=== PATIENT | female | born 1990 | race Caucasian/White ===

== ENCOUNTER 2016-04-06 11:40 | Emergency (ER) | payer OTHER ==
[2016-04-06 11:51] VITALS: BP 133/83; PULSE 71; TEMP 98.7; BMI 24.1
--- NOTE | 2016-04-06 11:57 | PDOC ---
History of Present Illness - General History Source: Patient, Old Records Exam Limitations: No Limitations - History of Present Illness Initial Comments: 04/06/16 12:02 25 y/o female with h/o asthma who presents to the ED with c/o dizziness described as feeling off balance. The patient states that she recently went on a cruise and when they docked at home, her symptoms started. She has felt that when she moves her head quickly or if she looks at the light then she feels off- balance. The patient went to an urgent care center that diagnosed her with vertigo and prescribed meclizine which has been helpful but her symptoms have persisted. The patient followed up with an [facility] specialist this morning who found no ENT etiology at this time and referred her to the ED for further work- up--potentially viral meningitis. The patient denies photophobia, headache, neck stiffness, fevers, chills or URI Sx. She says that on Wednesday when she was havingthe Sx, she felt nauseated but did not vomit. All other ROS are negative. <Corrie Treviño - Last Filed: 04/06/16 14:20> <Al Cunningham - Last Filed: 04/06/16 14:44> - General Chief Complaint: Lightheaded Stated Complaint: DIZZINESS Time Seen by Provider: 04/06/16 11:56 Past History - Past Medical History Asthma: Yes - Psycho/Social/Smoking Cessation Hx Anxiety: No Suicidal Ideation: No Smoking History: Never smoked Hx Alcohol Use: No Drug/Substance Use Hx: No <Corrie Treviño - Last Filed: 04/06/16 14:20> <Al Cunningham - Last Filed: 04/06/16 14:44> - Past Medical History Allergies/Adverse Reactions: Allergies Allergy/AdvReac Type Severity Reaction Status Date / Time shellfish derived Allergy Verified 04/06/16 11:44 Home Medications: Ambulatory Orders Meclizine HCl 25 mg PO QID PRN 04/06/16 Meclizine HCl [Antivert -] 50 mg PO TID PRN #30 tablet 04/06/16 Review of Systems - Review of Systems Able to Perform ROS?: Yes Is the patient limited [place] Citizen proficient: No Constitutional: No: Symptoms Reported HEENTM: Yes: See HPI, Ear Pain Respiratory: No: Symptoms reported Cardiac (ROS): No: Symptoms Reported ABD/GI: No: Symptoms Reported : No: Symptoms Reported Musculoskeletal: No: Symptoms Reported Integumentary: No: Symptoms Reported Neurological: Yes: Unsteady Gait Endocrine: No: Symptoms Reported Hematologic/Lymphatic: No: Symptoms Reported <Corrie Treviño - Last Filed: 04/06/16 14:20> *Physical Exam - Vital Signs Last Vital Signs Temp Pulse Resp BP Pulse Ox 98.7 F 71 18 133/83 100 04/06/16 11:40 04/06/16 11:40 04/06/16 11:40 04/06/16 11:40 04/06/16 11:40 - Physical Exam Comments: 04/06/16 11:58 GENERAL: Well developed, well nourished. Awake and alert. No acute distress. HEENT: Normocephalic, atraumatic. PERRLA, EOMI. TM's are intact bilaterally with positive light reflexes. No conjunctival pallor. Sclera are non-icteric. Moist mucous membranes. Oropharynx is clear. NECK: Supple. Full ROM. No JVD. No lymphadenopathy. CARDIOVASCULAR: Regular rate and rhythm. No murmurs, rubs, or gallops. Distal pulses are 2+ and symmetric. PULMONARY: No evidence of respiratory distress. Lungs clear to auscultation bilaterally. No wheezing, rales or rhonchi. ABDOMINAL: Soft. Non-tender. Non-distended. No rebound or guarding. No organomegaly. Normoactive bowel sounds. MUSCULOSKELETAL Normal range of motion at all joints. No bony deformities or tenderness. No CVA tenderness. EXTREMITIES: No cyanosis. No clubbing. No edema. No calf tenderness. SKIN: Warm and dry. Normal capillary refill. No rashes. No jaundice. NEUROLOGICAL: Alert, awake, appropriate. Cranial nerves 2-12 intact. Grossly non-focal exam. There are no cerebellar deficits. There is slight fatiguable horizontal nystagmus elicited on right lateral gaze. PSYCHIATRIC: Cooperative. Good eye contact. Appropriate mood and affect. <Corrie Treviño - Last Filed: 04/06/16 14:20> - Vital Signs Last Vital Signs Temp Pulse Resp BP Pulse Ox 98.7 F 71 18 133/83 100 04/06/16 11:40 04/06/16 11:40 04/06/16 11:40 04/06/16 11:40 04/06/16 11:40 <Al Cunningham - Last Filed: 04/06/16 14:44> ED Treatment Course - LABORATORY CBC & Chemistry Diagram: 04/06/16 12:10 04/06/16 12:10 <Corrie Treviño - Last Filed: 04/06/16 14:20> - LABORATORY CBC & Chemistry Diagram: 04/06/16 12:10 04/06/16 12:10 - ADDITIONAL ORDERS Additional order review: Laboratory Results 04/06/16 04/06/16 12:10 12:00 Sodium 132 L Potassium 3.9 Chloride 101 Carbon Dioxide 25 Anion Gap 6 L BUN 10 Creatinine 0.7 Random Glucose 91 Calcium 8.8 Phosphorus 3.5 Magnesium 2.0 Urine Color Yellow Urine Appearance Clear Urine pH 5.5 Ur Specific [place] 1.010 Urine Protein Negative Urine Glucose (UA) Negative Urine Ketones Negative Urine Blood Trace-lysed Urine Nitrite Negative Urine Bilirubin Negative Urine Urobilinogen 0.2 e.u/dl Ur Leukocyte Esterase Negative Urine HCG, Qual Negative 04/06/16 12:10 RBC 4.45 MCV 92.7 MCHC 32.6 RDW 11.9 MPV 8.6 Neutrophils % 54.0 Lymphocytes % 33.3 Monocytes % 7.7 Eosinophils % 4.6 H Basophils % 0.4 - RADIOLOGY Radiograph Interpretation: 04/06/16 14:25 EXAM: Head CT INTERPRETED BY: Dr. Farah REVIEWED BY: Dr. Treviño IMPRESSION: No evidence of acute intracranial hemorrhage, edema, midline shift, mass effect, or skull fracture. There is no CT evidence of acute territorial infarction. <Al Cunningham - Last Filed: 04/06/16 14:44> Medical Decision Making - Medical Decision Making 04/06/16 11:59 25 y/o female with h/o asthma who presents to the ED with c/o one week h/o dizziness which she describes as feeling off balance. DDx includes but is not limited to: peripheral vertigo, electrolyte abnormality, mass lesion, dehydration, UTI, . Plan: 1. Labs 2. CT head 3. Urine 4. Symptomatic treatment 5. Observe and re-evaluate 04/06/16 14:21 Addendum: Labs were reviewed and are noted in the EMR. CT scan was negative for acute intracranial pathology. I will discuss the results of the lab studies as well as the CT head with the patient. The plan is to increase meclizine to 50 mg 3 times a day when necessary as needed for vertigo. I have also informed the patient that she should follow-up with her primary care physician for outpatient MRI of the brain as well as neurology consultation. I have also advised that the patient return to the emergency department if her symptoms persist, worsen, or new symptoms arise. <Corrie Treviño - Last Filed: 04/06/16 14:20> *DC/Admit/Observation/Transfer - Discharge Dispostion Admit: No <Corrie Treviño - Last Filed: 04/06/16 14:20> - Attestations Scribe Attestion: 04/06/16 14:44 Documentation prepared by Al Cunningham, acting as territory sales manager medical for Corrie Treviño MD. <Al Cunningham - Last Filed: 04/06/16 14:44> Diagnosis at time of Disposition: Vertigo - Discharge Dispostion Disposition: HOME Condition at time of disposition: Stable - Prescriptions Prescriptions: Meclizine HCl [Antivert -] 50 mg PO TID PRN #30 tablet PRN Reason: Vertigo - Patient Instructions Printed Discharge Instructions: DI for Vertigo Additional Instructions: You have been diagnosed with vertigo. Take meclizine 50 mg up to 3 times a day as needed for feeling dizzy. Please follow-up with your primary care physician within the next week. You may return to the emergency department if your syptoms persist, sen, or new symptoms arise.
[2016-04-06 12:39] LABS: BASOPHIL 0.4 % (0-2.0); EOSINOPHIL 4.6 % (0-4.5); MCH 30.2 pg (25.7-33.7); MCHC 32.6 g/dl (32.0-36.0); MEAN CELL VOLUME 92.7 fl (80-96); MEAN PLT VOLUME 8.6 fl (7.5-11.1); PLATELET COUNT 192 K/MM3 (134-434); RDW 11.9 % (11.6-15.6); WHITE BLOOD COUNT 6.5 K/mm3 (4.0-10.0)
[2016-04-06 12:50] LABS: CALCIUM 8.8 mg/dl (8.4-10.2); CREATININE 0.7 mg/dl (0.6-1.3); PHOSPHOROUS 3.5 mg/dl (2.5-4.6)
[2016-04-06 13:12] LABS: PH,URINE 5.5 (4.5-8); URINE APPEARANCE Clear; URINE BILIRUBIN Negative (NEGATIVE); URINE BLOOD Trace-lysed (NEGATIVE); URINE COLOR YELLOW; URINE GLUCOSE (UA) Negative (NEGATIVE); URINE KETONE Negative (NEGATIVE); URINE LEUK ESTERASE Negative (NEGATIVE); URINE NITRITE Negative (NEGATIVE); URINE PROTEIN Negative (NEGATIVE); URINE UROBILINOGEN 0.2 E.U/dl (0.2-1.0)
== END 2016-04-06 14:30 | disposition home or self-care (01) ==
LOC: FER 11:40
DX: R42 Dizziness and giddiness (principal); J45.909 Unspecified asthma, uncomplicated
CPT/HCPCS: 36415; 70450-TC; 80048; 81003; 83735; 84100; 84703; 85025; 99283-25